=== PATIENT | male | born 1955 | race Caucasian/White ===

== ENCOUNTER 2017-10-12 08:42 | Day surgery (SDC) | payer OTHER ==
[~2017-10-12] VITALS: Ht 180.3 cm; Wt 77.2 kg
[~2017-10-12 08:42] MED LIST: MIRT15 PO; Omeprazole20 M1; Razadyne12 MG PO; Seroquel Xr50 MG PO
== END 2017-10-12 10:27 | disposition home or self-care (01) ==
LOC: ORSCSDS 08:42
PROVIDERS: Internal Medicine Gastroenterology
PROC: 0DB68ZX Excision of Stomach, Via Natural or Artificial Opening Endoscopic, Diagnostic (ICD-10-PCS; principal; 2017-10-12 10:00)
PROC: 0D758ZZ Dilation of Esophagus, Via Natural or Artificial Opening Endoscopic (ICD-10-PCS; principal; 2017-10-12 10:00)
DX: R13.10 Dysphagia, unspecified (principal); K31.89 Other diseases of stomach and duodenum; F41.8 Other specified anxiety disorders; K44.9 Diaphragmatic hernia without obstruction or gangrene; F03.90 Unspecified dementia, unspecified severity, without behavioral disturbance, psychotic disturbance, mood disturbance, and anxiety; Z87.891 Personal history of nicotine dependence; Z79.899 Other long term (current) drug therapy
CPT/HCPCS: 88305; 88341; 88342; J7120

== ENCOUNTER 2019-08-15 09:48 | Day surgery (SDC) | payer OTHER ==
[~2019-08-15] VITALS: Ht 177.8 cm; Wt 71.7 kg
[~2019-08-15 09:48] MED LIST changes: +STIOLTO RESPIMAT4 GM INH; +VITAMIN B122500 MCG PO; +VITAMIN D3125 MCG PO; +ZYRTEC10 M2 PO; +Zoloft100 MG PO
--- NOTE | 2019-08-15 10:34 | NUR ---
Ambulatory in Day Surgery. Surgical site prepped with 2% Chlorhexidine cloth wipe. History, Chart, Medications and Allergies reviewed before start of procedure.Lungs clear T/O to Auscultation. Patient confirms NPO status and agrees with scheduled surgery. Pre-Op teaching done. Pt verbalizes understanding. Patient States Post-Procedure ride home has been arranged. Patient reports completing Chlorhexadine shower X2 prior to admission to hospital.
--- NOTE | 2019-08-18 15:14 | NUR ---
08/18/19 1514 Melodie Hillman VERIFICATIONS, AUDITS.
== END 2019-08-15 14:22 | disposition home or self-care (01) ==
LOC: ORSCMMR 09:48 → ORD 11:30 → ORSCMMR 14:22
PROVIDERS: Surgery
PROC: 8E0W4CZ Robotic Assisted Procedure of Trunk Region, Percutaneous Endoscopic Approach (ICD-10-PCS; principal; 2019-08-15 11:30)
PROC: 0YU54JZ Supplement Right Inguinal Region with Synthetic Substitute, Percutaneous Endoscopic Approach (ICD-10-PCS; principal; 2019-08-15 11:30)
DX: K40.90 Unilateral inguinal hernia, without obstruction or gangrene, not specified as recurrent (principal); J44.9 Chronic obstructive pulmonary disease, unspecified; K21.9 Gastro-esophageal reflux disease without esophagitis; Z79.899 Other long term (current) drug therapy; Z87.891 Personal history of nicotine dependence
CPT/HCPCS: 49650; S2900; A9270-GY; C1781; J0690; J1100; J1885; J2250; J2370; J2405; J2704; J2710; J3010; J7120